=== PATIENT | male | born 1970 | race Caucasian/White ===

== ENCOUNTER 2017-11-29 11:48 | Outpatient (CLI) | payer OTHER ==
--- NOTE | 2017-11-29 13:01 | RAD ---
LUMBAR SPINE FOUR VIEWS: INDICATIONS: Disability evaluation. COMPARISON: None. FINDINGS: There are five lumbar type vertebrae. There is multilevel mild disk degenerative disease. Spinal al ignment and vertebral body heights are normal. The SI joints are normal appearing. IMPRESSION: Mild spondylosis of the lumbar spine. POS: IRENE
== END 2017-11-29 11:49 | disposition home or self-care (01) ==
LOC: NAV RAD 11:48
PROVIDERS: ATTEND Family Medicine
DX: M54.5 Low back pain (principal); M47.896 Other spondylosis, lumbar region
CPT/HCPCS: 72100

== ENCOUNTER 2024-08-18 03:25 | Emergency (ER) | payer OTHER ==
[2024-08-18] MEDS ORDERED: Amoxicillin/Potassium Clav 875 MG TAB ONE (03:56)
[2024-08-18] MEDS ORDERED: traMADol HCl 50 MG TAB ONE (03:57)
== END 2024-08-18 04:08 | disposition home or self-care (01) ==
LOC: NAV ERS 03:25
DX: K02.9 Dental caries, unspecified (principal); F17.210 Nicotine dependence, cigarettes, uncomplicated
CPT/HCPCS: 99282